=== PATIENT | female | born 1970 | race Caucasian/White ===

== ENCOUNTER 2018-08-23 16:01 | Emergency (ER) | payer BC, SELFPAY ==
[2018-08-23 16:03] VITALS: BP 119/83; PULSE 79; RESP 18; TEMP 36.5; O2SAT 98; BMI 35.6
--- NOTE | 2018-08-23 16:27 | RAD_ITS ---
STUDY: X-RAY CHEST REASON FOR EXAM: Female, 48 years old. Chest pain. Heartburn for 3 days. TECHNIQUE: PA and lateral views of the chest. COMPARISON: None. FINDINGS: The lungs are clear and expanded. There is no demonstrated pleural abnormality. Normal size heart. Normal mediastinum and jhon. Normal visualized pulmonary arteries. Normal visualized aortic arch and descending thoracic aorta. Normal visualized thoracic spine. Normal visualized ribs, clavicles, and shoulders. There is no demonstrated abnormality of the visualized soft tissue structures of the upper abdomen. RAD/Chest PA and Lateral IMPRESSION: No acute cardiopulmonary disease. Electronically Signed: Bora Parsons DO at 17:10 EDT Tel [phone], Service support ,
--- NOTE | 2018-08-23 16:27 | EKG12_ITS ---
Test Reason : ABDOMINAL PAIN Blood Pressure : / mmHG Vent. Rate : 070 BPM Atrial Rate : 070 BPM P-R Int : 154 ms QRS Dur : 074 ms QT Int : 412 ms P-R-T Axes : 063 048 080 degrees QTc Int : 444 ms Normal sinus rhythm Low voltage QRS Borderline ECG Confirmed by BECKY COULTER ([id number]), field map editor BRUNA MARIA ([id number]) on 08/26/2018 11:11:00 AM Referred By: TIFFANIE Confirmed By:BECKY COULTER
[2018-08-23] MEDS: Mag Hydrox/Al Hydrox/Simeth 30 ML UDC PO (16:30)
--- NOTE | 2018-08-23 16:34 | ED.DCSUM_ITS ---
- ER Visit Summary Date of Service: 08/23/18 Chief Complaint: Abdominal pain History of Present Illness: The patient is a 48 F with a 3-day history of heartburn. She describes a burning sensation epigastrium that radiates up into her chest. She states she is a history of reflux but never lasted this long. She is tried baking soda water, milk, and drinking a milkshake at home without improvement. She called her primary care office today but was told because she is a smoker she has to go the emergency room. Past history significant for anxiety, cholecystotomy, hysterectomy. Physical Examination: Vital signs unremarkable. Patient sitting upright in bed no acute distress. Head and neck examination normal. Heart is regular rate and rhythm. Lung sounds are clear. Abdomen is soft with focal tenderness in epigastrium. Active bowel sounds are noted throughout. No guarding or rebound noted on abdominal exam. Test Results: EKG is sinus at 70 with no acute ischemia. Two-view chest x-ray shows no acute disease. Emergency Department Course and Treatment: Patient was given a GI cocktail with improvement in her symptoms. She be given a prescription for Prevacid. She is to follow-up with her primary care physician within the next 2 weeks. Treatment Plan: [] Disposition: Discharge Impression: GERD This note was generated with [employer] dictation software. It may contain incorrect words, spelling, and punctuation that were not noted in review of the chart prior to signing ED Disposition - Plan for ED Patient: Referrals: Jen Conway [Primary Care Provider] -
--- NOTE | 2018-08-23 17:33 | ED.DEP ---
ED Disposition - Plan for ED Patient: Disposition: Home or Assisted Living Instructions: ED GERD Prescriptions: Lansoprazole [Prevacid] 15 mg PO DAILY #30 tab. Referrals: Jen Conway [Primary Care Provider] - 1-2 Weeks
[2018-08-23 17:42] VITALS: BP 137/68; PULSE 71; RESP 15; O2SAT 98
== END 2018-08-23 17:43 | disposition home or self-care (01) ==
PROVIDERS: Emergency Provider Emergency Medicine; Family Provider Family Medicine; PCP Family Medicine
DX: K21.9 Gastro-esophageal reflux disease without esophagitis (principal); F17.200 Nicotine dependence, unspecified, uncomplicated
CPT/HCPCS: 71046; 93005; 99283